=== PATIENT | female | born 1985 | race Caucasian/White ===

== ENCOUNTER 2018-10-02 10:58 | Inpatient (IN) | payer MEDICAID ==
[2018-10-02 12:00] LABS: ADD UMIC NO; UR ASCORBIC ACID NEGATIVE (NEGATIVE); UR BACTERIA FEW /HPF (NONE SEEN); UR BILIRUBIN (Dip) NEGATIVE (NEGATIVE); UR BLOOD (Dip) NEGATIVE (NEGATIVE); UR CLARITY SLIGHTLY CLOUDY (CLEAR); UR COLOR YELLOW (YELLOW); UR GLUCOSE (Dip) NEGATIVE (NEGATIVE); UR KETONES (Dip) TRACE mg/dL (NEGATIVE); UR LEUKOCYTE ESTERASE (Dip) NEGATIVE Leu/ul (NEGATIVE); UR NITRITE (Dip) NEGATIVE (NEGATIVE); UR RBC 0 /HPF (0-5); UR SPECIFIC GRAVITY (Dip) 1.012 (1.003-1.030); UR SQUAMOUS EPITHELIAL CELL FEW /HPF (FEW); UR TOTAL PROTEIN (Dip) NEGATIVE (NEGATIVE); UR UROBILINOGEN (Dip) NEGATIVE (NEGATIVE); UR WBC 1 /HPF (0-5)
[2018-10-02 12:49] LABS: ADD MAN DIFF? NO
[2018-10-02 13:14] LABS: WHITE BLOOD COUNT 9.9 10^3/ul (4.8-10.8)
[2018-10-02 13:14] LABS: BASOPHILS % 0.3 % (0.0-2.0); EOSINOPHILS # 0.2 10^3/ul (0.0-0.5); EOSINOPHILS % 1.7 % (0.0-7.0); HEMATOCRIT 36.5 % (37.0-47.0); HEMOGLOBIN 12.1 g/dl (12.0-16.0); LYMPHOCYTES # 1.7 10^3/ul (0.8-2.9); LYMPHOCYTES % 17.5 % (15.0-51.0); MEAN CORPUSCULAR HEMOGLOBIN 32.1 pg (29.0-33.0); MEAN CORPUSCULAR HGB CONC 33.2 g/dl (32.0-37.0); MEAN CORPUSCULAR VOLUME 96.8 fl (82.0-101.0); MEAN PLATELET VOLUME 10.8 fl (7.4-10.4); MONOCYTE # 0.8 10^3/ul (0.3-0.9); MONOCYTES % 7.8 % (0.0-11.0); NEUTROPHIL # 7.2 10^3/ul (1.6-7.5); NEUTROPHILS % 72.3 % (39.0-77.0); PLATELET COUNT 299 10^3/UL (140-415); RED BLOOD COUNT 3.77 10^6/ul (4.20-5.40)
[2018-10-02] MEDS: LACTATED RINGER'S 1,000 ML IV (17:16)
[2018-10-03] MEDS: LACTATED RINGER'S 1,000 ML IV ×2 (00:55→08:55)
[2018-10-03] MEDS: FERROUS SULFATE (EC) 325 MG TAB PO (09:00)
[2018-10-03] MEDS: PRENATAL VITAMIN PO (09:00)
== END 2018-10-03 15:38 | disposition home or self-care (01) | DRG 833 ==
LOC: OBT 10:58 → L-D 10:59 → OBT 16:20 → L-D 16:20
DX: O60.02 Preterm labor without delivery, second trimester (principal); O76 Abnormality in fetal heart rate and rhythm complicating labor and delivery; Z3A.27 27 weeks gestation of pregnancy
CPT/HCPCS: 76705; 76817; 76818; 81001; 81003; 85025; 87086

== ENCOUNTER 2018-10-07 09:45 | Outpatient (CLI) | payer MEDICAID | END 2018-10-07 11:38 | disposition home or self-care (01) | LOC: OBT 09:45 → L-D 09:45 → OBT 11:38 | DX: O62.9 Abnormality of forces of labor, unspecified (principal); Z3A.28 28 weeks gestation of pregnancy | CPT/HCPCS: 76818 ==

== ENCOUNTER 2018-11-09 13:41 | Outpatient (CLI) | payer OTHER, MEDICAID ==
[2018-11-09 14:34] LABS: ADD UMIC YES; UR ASCORBIC ACID 20 mg/dL (NEGATIVE); UR BACTERIA FEW /HPF (NONE SEEN); UR BILIRUBIN (Dip) NEGATIVE (NEGATIVE); UR BLOOD (Dip) NEGATIVE (NEGATIVE); UR CLARITY SLIGHTLY CLOUDY (CLEAR); UR COLOR YELLOW (YELLOW); UR GLUCOSE (Dip) NEGATIVE (NEGATIVE); UR KETONES (Dip) NEGATIVE (NEGATIVE); UR LEUKOCYTE ESTERASE (Dip) TRACE Leu/ul (NEGATIVE); UR NITRITE (Dip) NEGATIVE (NEGATIVE); UR RBC 0 /HPF (0-5); UR SPECIFIC GRAVITY (Dip) 1.019 (1.003-1.030); UR SQUAMOUS EPITHELIAL CELL MODERATE /HPF (FEW); UR TOTAL PROTEIN (Dip) NEGATIVE (NEGATIVE); UR UROBILINOGEN (Dip) NEGATIVE (NEGATIVE); UR WBC 3 /HPF (0-5)
[2018-11-09 14:48] LABS: RUPTURE FETAL MEMBRANES NEGATIVE (NEGATIVE)
== END 2018-11-09 15:48 | disposition home or self-care (01) ==
LOC: OBT 13:41 → L-D 14:00 → OBT 15:48
DX: O42.913 Preterm premature rupture of membranes, unspecified as to length of time between rupture and onset of labor, third trimester (principal); Z3A.33 33 weeks gestation of pregnancy
CPT/HCPCS: 76818; 81001; 84112

== ENCOUNTER 2018-12-27 05:20 | Inpatient (IN) | payer OTHER ==
[2018-12-27] MEDS ORDERED: BUTORPHANOL 2 MG INJ IV (06:30)
[2018-12-27] MEDS ORDERED: IBUPROFEN 600 MG TAB PO (06:30)
[2018-12-27] MEDS ORDERED: METHYLERGONOVINE 0.2 MG INJ IM ×2 (06:30→15:30)
[2018-12-27] MEDS ORDERED: LIDOCAINE 1% (MPF) 30 ML INJ INJ (06:30)
[2018-12-27] MEDS ORDERED: MISOPROSTOL 200 MCG TAB PR ×2 (06:30→15:30)
[2018-12-27] MEDS ORDERED: OXYTOCIN 30 UNITS/LR 500 ML IV ×4 (06:30→15:30)
[2018-12-27] MEDS ORDERED: CARBOPROST 250 MCG INJ IM ×2 (06:30→15:30)
[2018-12-27 07:05] LABS: ADD MAN DIFF? NO
[2018-12-27 07:09] LABS: BASOPHILS % 0.2 % (0.0-2.0); EOSINOPHILS # 0.2 10^3/ul (0.0-0.5); EOSINOPHILS % 1.4 % (0.0-7.0); HEMATOCRIT 36.1 % (37.0-47.0); HEMOGLOBIN 11.9 g/dl (12.0-16.0); LYMPHOCYTES # 1.5 10^3/ul (0.8-2.9); LYMPHOCYTES % 13.7 % (15.0-51.0); MEAN CORPUSCULAR HEMOGLOBIN 30.5 pg (29.0-33.0); MEAN CORPUSCULAR VOLUME 92.6 fl (82.0-101.0); MEAN PLATELET VOLUME 11.1 fl (7.4-10.4); MONOCYTE # 0.7 10^3/ul (0.3-0.9); MONOCYTES % 6.3 % (0.0-11.0); NEUTROPHIL # 8.3 10^3/ul (1.6-7.5); NEUTROPHILS % 78.1 % (39.0-77.0); PLATELET COUNT 282 10^3/UL (140-415); RED CELL DISTRIBUTION WIDTH 14.8 % (11.5-14.5)
[2018-12-27 07:09] LABS: WHITE BLOOD COUNT 10.7 10^3/ul (4.8-10.8)
[2018-12-27 07:27] LABS: INR 0.88; PT RATIO 0.9
[2018-12-27 07:28] LABS: PARTIAL THROMBOPLASTIN TIME 26.5 Sec (23.0-35.0)
[2018-12-27] MEDS: LACTATED RINGER'S 1,000 ML IV ×2 (07:59→08:48)
[2018-12-27 08:02] LABS: HEPATITIS B SURFACE ANTIGEN NEGATIVE (NEGATIVE)
[2018-12-27] MEDS: AMPICILLIN 2 GM/NS (PMX) 100 ML IV (08:06)
[2018-12-27] MEDS ORDERED: ONDANSETRON 4 MG INJ IV (08:30)
[2018-12-27] MEDS ORDERED: FENTAnyl 2MCG/ML-ROPIV 0.2% 100 ML BAG EPI (08:30)
[2018-12-27] MEDS ORDERED: DIPHENHYDRAMINE 50 MG INJ IV (08:30)
[2018-12-27] MEDS ORDERED: NALOXONE (0.4 MG/ML) INJ IV (08:30)
[2018-12-27] MEDS: OXYTOCIN 30 UNITS/LR 500 ML IV ×3 (11:18→17:52)
[2018-12-27] MEDS: AMPICILLIN 1 GM/NS (PMX) 50 ML IV (12:26)
[2018-12-27] MEDS: MINERAL OIL LIGHT 10 ML VIAL TOP (13:20)
[2018-12-27] MEDS ORDERED: TORADOL IV ×2 (13:35→14:07)
[2018-12-27] MEDS ORDERED: ACETAMINOPHEN 500 MG TAB PO (13:35)
[2018-12-27] MEDS ORDERED: ZOLPIDEM 5 MG TAB PO (15:30)
[2018-12-27] MEDS ORDERED: DIBUCAINE 1% 30 GM OINT TOP (15:30)
[2018-12-27] MEDS: LANOLIN HPA 1 PKT TOP (17:53)
[2018-12-27] MEDS: IBUPROFEN 600 MG TAB PO ×2 (17:53→23:49)
[2018-12-27] MEDS: CEPHALEXIN 500 MG CAP PO ×2 (17:53→23:49)
[2018-12-27] MEDS: WITCH HAZEL/GLYCERIN PAD PR (17:54)
[2018-12-27] MEDS: BENZOCAINE 20% 56 ML SPRAY TOP (17:55)
[2018-12-27] MEDS: HYDROCODONE/APAP (5/325) TAB PO (19:47)
[2018-12-27] MEDS: LACTATED RINGER'S 1,000 ML IV* ×2 (20:00→23:10)
[2018-12-27 21:31] LABS: RAPID PLASMA REAGIN NONREACTIVE (NR)
[2018-12-27] MEDS: MAGNESIUM HYDROXIDE 30ML CUP PO (21:57)
[2018-12-27] MEDS: SENNA/DOCUSATE NA (8.6MG/50MG) TAB PO (21:57)
[2018-12-28] MEDS: IBUPROFEN 600 MG TAB PO ×3 (06:01→17:29)
[2018-12-28] MEDS: CEPHALEXIN 500 MG CAP PO ×3 (06:01→17:28)
[2018-12-28] MEDS: LACTATED RINGER'S 1,000 ML IV* ×3 (07:10→23:10)
[2018-12-28 08:19] LABS: ADD MAN DIFF? NO
[2018-12-28 08:23] LABS: WHITE BLOOD COUNT 11.5 10^3/ul (4.8-10.8)
[2018-12-28 08:23] LABS: BASOPHILS % 0.2 % (0.0-2.0); EOSINOPHILS # 0.4 10^3/ul (0.0-0.5); HEMATOCRIT 34.7 % (37.0-47.0); HEMOGLOBIN 11.3 g/dl (12.0-16.0); LYMPHOCYTES # 1.9 10^3/ul (0.8-2.9); LYMPHOCYTES % 16.4 % (15.0-51.0); MEAN CORPUSCULAR HEMOGLOBIN 30.6 pg (29.0-33.0); MEAN CORPUSCULAR HGB CONC 32.6 g/dl (32.0-37.0); MEAN PLATELET VOLUME 11.2 fl (7.4-10.4); MONOCYTE # 0.7 10^3/ul (0.3-0.9); NEUTROPHIL # 8.6 10^3/ul (1.6-7.5); NEUTROPHILS % 74.1 % (39.0-77.0); PLATELET COUNT 260 10^3/UL (140-415); RED BLOOD COUNT 3.69 10^6/ul (4.20-5.40); RED CELL DISTRIBUTION WIDTH 14.9 % (11.5-14.5)
[2018-12-28] MEDS: HYDROCODONE/APAP (5/325) TAB PO ×2 (08:29→20:48)
[2018-12-28] MEDS: SENNA/DOCUSATE NA (8.6MG/50MG) TAB PO ×2 (08:29→20:48)
[2018-12-28] MEDS: MAGNESIUM HYDROXIDE 30ML CUP PO ×2 (08:29→20:48)
[2018-12-29] MEDS: IBUPROFEN 600 MG TAB PO ×3 (00:07→12:21)
[2018-12-29] MEDS: CEPHALEXIN 500 MG CAP PO ×3 (00:07→12:20)
[2018-12-29] MEDS: LACTATED RINGER'S 1,000 ML IV* ×2 (07:10→15:10)
[2018-12-29] MEDS: SENNA/DOCUSATE NA (8.6MG/50MG) TAB PO (08:37)
[2018-12-29] MEDS: MAGNESIUM HYDROXIDE 30ML CUP PO (08:37)
[2018-12-29] MEDS: VARICELLA VACCINE LIVE/PF 1,350 UNIT/0.5 ML ML SC* (09:00)
[2018-12-29] MEDS: DIPHTH/TET/ACEL PERTUSS (ADULT) 0.5 ML VIAL IM* (09:00)
[2018-12-29] MEDS: MEASLES,MUMPS,RUBELLA VACCINE INJ SC* (09:00)
[2018-12-29] MEDS: HYDROCODONE/APAP (5/325) TAB PO (12:52)
== END 2018-12-29 16:55 | disposition home or self-care (01) | DRG 807 ==
LOC: OBT 05:20 → L-D 05:20 → OBT 06:50 → L-D 06:50 → PP1 15:14
PROVIDERS: Obstetrics & Gynecology
PROC: 10E0XZZ Delivery of Products of Conception, External Approach (ICD-10-PCS; principal; 2018-12-27)
DX: O80 Encounter for full-term uncomplicated delivery (principal); Z37.0 Single live birth; Z3A.39 39 weeks gestation of pregnancy
CPT/HCPCS: 62322; 85025; 85610; 85730; 86592; 86850; 86900; 86901; 87340; 90716